=== PATIENT | female | born 1965 | race Caucasian/White ===

== ENCOUNTER 2016-07-23 14:05 | Day surgery (SDC) | payer OTHER ==
[2016-07-23] VITALS (15 sets, daily range): BP systolic 133–155; BP diastolic 71–89; PULSE 56–70; RESP 17–18; Ht 157.5 cm; Wt 59.0 kg
[~2016-07-23] VITALS: Ht 157.5 cm; Wt 59.0 kg
[2016-07-23] MEDS ORDERED: POVIDONE IODINE 10% 28.4 GM OINT ONE (14:42)
[2016-07-23] MEDS ORDERED: BUPIVACAINE 0.5% (SDV) 30 ML INJ ONE (14:42)
[2016-07-23] MEDS ORDERED: CETI-240 PO (15:22)
--- NOTE | 2016-07-23 17:44 | HPN ---
Date/Time of Note Date/Time of Note DATE: 07/23/16 TIME: 17:44 Interval H&P Admission Note Pt. seen H&P reviewed: No system changes RAUL MACIAS Jul 23, 2016 17:44
[2016-07-23] MEDS ORDERED: PROPOFOL 20 ML ONE (17:45)
[2016-07-23] MEDS ORDERED: ONDANSETRON 4 MG INJ ONE (17:45)
[2016-07-23] MEDS ORDERED: METOCLOPRAMIDE 10 MG INJ ONE (17:45)
[2016-07-23] MEDS ORDERED: FAMOTIDINE 20 MG INJ ONE (17:45)
[2016-07-23] MEDS ORDERED: LIDOCAINE 2% (SDV) 5 ML INJ ONE (17:45)
[2016-07-23] MEDS ORDERED: DEXAMETHASONE 4 MG/ML 1 ML INJ ONE (17:45)
[2016-07-23] MEDS ORDERED: MIDAZOLAM 1 MG/ML 2 ML INJ ONE (17:45)
[2016-07-23] MEDS ORDERED: FENTAnyl 50 MCG/ML VIAL ONE (17:45)
[2016-07-23] MEDS ORDERED: CEFAZOLIN 1 GM INJ ONE (17:54)
[2016-07-23] MEDS ORDERED: BUPIVACAINE 0.5% (SDV) 30 ML INJ INJ ONE (18:19)
[2016-07-23] MEDS ORDERED: HYDROmorphONE (0.2 MG/ML) 10ML SYG IV PRN (18:30)
[2016-07-23] MEDS ORDERED: FENTAnyl 50 MCG/ML VIAL IV PRN (18:30)
[2016-07-23] MEDS ORDERED: MEPERIDINE 25 MG INJ IV PRN (18:30)
[2016-07-23] MEDS ORDERED: OXYCODONE/ACETAMINOPHEN (5/325) TAB PO PRN (18:30)
[2016-07-23] MEDS ORDERED: DIPHENHYDRAMINE 50 MG INJ IV PRN (18:30)
[2016-07-23] MEDS ORDERED: ONDANSETRON 4 MG INJ IV PRN (18:30)
[2016-07-23] MEDS ORDERED: PROCHLORPERAZINE 10 MG INJ IV PRN (18:30)
--- NOTE | 2016-07-23 19:33 | OPR ---
DATE OF OPERATION: 07/23/2016 ANESTHESIA: General. PREOPERATIVE DIAGNOSES 1. Left wrist volar ganglion. 2. Left de Quervain's tenosynovitis. POSTOPERATIVE DIAGNOSIS: 1. Left wrist volar ganglion. 2. Left de Quervain's tenosynovitis. 3. Left first dorsal compartment extensive tenosynovitis. PROCEDURE 1. Excision of left wrist volar ganglion. 2. Left first dorsal compartment release. 3. Extensive left first dorsal compartment tenosynovectomy. OPERATIVE FINDINGS: Extensive tenosynovitis within the first dorsal compartment and volar ganglion from the radiocarpal joint. INDICATION FOR PROCEDURE: This is a 51-year-old female with longstanding left wrist pain. She fail ed conservative management and was seen in clinic and diagnosed with a volar and radial ganglion, as well as de Quervain's tenosynovitis. She failed steroid injections and MRI confirmed a ganglion an d the patient gave informed consent to proceed with surgery, understanding the risks and benefits. DESCRIPTION OF PROCEDURE: The patient was seen in the preoperative area and all further questions w ere answered; again, she gave informed consent, understanding the risks and benefits. She is taken to operative suite and placed in supine position. She was placed under general anesthesia and tourn iquet placed in the left upper extremity. Ancef 2 g given and the left upper extremity was prepped with ChloraPrep stick and draped in the usual sterile fashion. Esmarch bandage was used to exsangui glenna the extremity and tourniquet inflated to 250 mmHg. An incision over the volar radial ganglion was utilized and sharp dissection was carried down through skin and subcutaneous tissue. The radial artery was found to be lying directly over the ganglion and the radial artery was mobilized and ret racted ulnarly. The ganglion was visualized and was excised down to the level of the radiocarpal suzanne int. A portion of the capsule was also excised with the cyst itself. Attention was then turned to the first dorsal compartment release and a separate oblique incision wa s utilized with sharp dissection carried down through skin and subcutaneous tissue. The extensor re tinaculum over the first dorsal compartment was visualized and was incised along its dorsal border. The retinaculum was divided distally and the first dorsal compartment tendons were visualized. The re was extensive tenosynovitis surrounding them and this tenosynovitis was excised and was sent to p athology. The tenosynovitis extending from the level of the wrist joint, approximately 6 cm proxima lly to the musculotendinous junction. After tenosynovectomy, the tendons were cleaned and were glid ing nicely without subluxation. Wounds were copiously irrigated and skin closed with 5-0 nylon. Xe roform placed, followed by sterile gauze, Webril, and a short-arm splint. Tourniquet was deflated a fter 32 minutes and patient was awakened from anesthesia. She was taken to the postoperative suite in stable condition and tolerated the procedure well without complication. SPECIMENS: Left wrist tenosynovitis. ESTIMATED BLOOD LOSS: 5 mL. SPONGE, INSTRUMENT AND NEEDLE COUNTS: Correct. TOURNIQUET TIME: Thirty-two minutes. CONDITION ON DISCHARGE: Stable. Dictated By: RAUL HUMPHRIES/PEARL Conf#: [id number] DID#: [id number]
== END 2016-07-23 20:38 | disposition home or self-care (01) ==
LOC: SDS 14:05
PROVIDERS: ATTEND Orthopaedic Surgery Hand Surgery
DX: M67.432 Ganglion, left wrist (principal); M65.4 Radial styloid tenosynovitis [de Quervain]
CPT/HCPCS: 25000; 25111; 25116; 88304; J0690; J1100; J1170; J2250; J2405; J2765; J3010; Z7512; Z7610